=== PATIENT | male | born 1955 | race Caucasian/White ===

== ENCOUNTER 2022-09-14 05:32 | Day surgery (SDC) | payer OTHER ==
[2022-09-08 14:59] VITALS: BMI 29.2
[2022-09-14 08:20] VITALS: TEMP 98
[2022-09-14 08:36] VITALS: RESP 14
[2022-09-14 08:37] VITALS: BP 110/66; PULSE 59
== END 2022-09-14 08:45 | disposition home or self-care (01) ==
LOC: JASU-ENDO 05:32
PROVIDERS: ATTEND Internal Medicine Gastroenterology
PROC: 0DBL8ZX Excision of Transverse Colon, Via Natural or Artificial Opening Endoscopic, Diagnostic (ICD-10-PCS; 2022-09-14)
PROC: 0DBN8ZX Excision of Sigmoid Colon, Via Natural or Artificial Opening Endoscopic, Diagnostic (ICD-10-PCS; principal; 2022-09-14 08:00)
DX: Z12.11 Encounter for screening for malignant neoplasm of colon (principal); D12.3 Benign neoplasm of transverse colon; D12.5 Benign neoplasm of sigmoid colon; Z86.010 Personal history of colon polyps; Z80.0 Family history of malignant neoplasm of digestive organs; I10 Essential (primary) hypertension
CPT/HCPCS: 88305-TC